=== PATIENT | female | born 1965 | race Two or more races ===

== ENCOUNTER 2020-10-29 05:45 | Emergency (ER) | payer OTHER ==
[~2020-10-29] VITALS: Ht 160 cm; Wt 85.7 kg
[~2020-10-29 05:45] MED LIST: INDERAL LA80 MG; PEPCID40 MG PO; SYNTHROID150 MCG; ZOFRAN4 MG PO
[2020-10-29] MEDS ORDERED: MICARDIS40 MG (06:01)
[2020-10-29] MEDS ORDERED: ATENOLOL50 MG (06:02)
== END 2020-10-29 12:00 | disposition home or self-care (01) ==
LOC: ER 05:45
DX: K57.30 Diverticulosis of large intestine without perforation or abscess without bleeding (principal); Z20.822 Contact with and (suspected) exposure to COVID-19; R10.32 Left lower quadrant pain

== ENCOUNTER 2021-09-28 05:31 | Emergency (ER) | payer OTHER ==
[~2021-09-28] VITALS: Ht 157.5 cm; Wt 83.9 kg
[~2021-09-28 05:31] MED LIST changes: +ATENOLOL50 MG; +MICARDIS40 MG
== END 2021-09-28 08:38 | disposition home or self-care (01) ==
LOC: ER 05:31
DX: N39.0 Urinary tract infection, site not specified (principal); R10.84 Generalized abdominal pain